=== PATIENT | male | born 1985 | race Caucasian/White ===

== ENCOUNTER 2018-01-19 10:08 | Emergency (ER) | payer OTHER ==
[~2018-01-19] VITALS: Ht 175.3 cm; Wt 56.7 kg
[~2018-01-19 10:08] MED LIST: DOXYCYCLINE 10100 MG PO
[2018-01-19] MEDS ORDERED: BIKTARVY 50-201 EACH PO (10:33)
[2018-01-19] MEDS ORDERED: TOPROL XL25 MG PO (10:33)
[2018-01-19] MEDS ORDERED: VENTOLIN HFA 1818 GM INH (10:33)
[2018-01-19 10:44] LABS: ABSOLUTE NEUTROPHILS 7.6 thou/uL (1.4-8.2); BASOPHILS 0.6 % (0.0-2.0); EOSINOPHILS 1.5 % (0.0-3.0); HEMATOCRIT 42.4 % (42.0-52.0); HEMOGLOBIN 15.5 gm/dL (14.0-18.0); LYMPHOCYTES 12.8 % (24.0-44.0); MCH 32.3 pg (26.0-34.0); MCHC 36.5 g/dL (28.0-37.0); MCV 88.7 fL (80.0-100.0); MONOCYTES 5.8 % (1.0-8.0); PLATELET COUNT 162 thou/uL (150-400); POLYS 79.3 % (36.0-66.0); RBC 4.78 mil/uL (4.50-6.00); RDW 12.6 % (10.5-14.5); WBC 9.6 thou/uL (4.0-11.0)
[2018-01-19 10:51] LABS: CALCIUM 9.4 mg/dL (8.5-10.1); CREATININE 1.2 mg/dL (0.7-1.3); POTASSIUM 3.3 mmol/L (3.5-5.1)
[2018-01-19 10:58] LABS: ALBUMIN 3.3 g/dL (3.4-5.0); TOTAL BILIRUBIN 1.1 mg/dL (<0.1-1.0); TOTAL PROTEIN 7.9 g/dL (6.4-8.2)
[2018-01-19] MEDS ORDERED: ZOFRAN ODT4 MG PO (11:19)
[2018-01-19] MEDS ORDERED: K-TAB10 MEQ PO (11:21)
[2018-01-19 12:15] VITALS: BP 106/62
== END 2018-01-19 12:19 | disposition home or self-care (01) ==
LOC: ER 10:08
PROVIDERS: Physician Assistant
DX: R11.2 Nausea with vomiting, unspecified (principal); F41.9 Anxiety disorder, unspecified; E87.6 Hypokalemia

== ENCOUNTER 2019-06-16 04:09 | Emergency (ER) | payer OTHER ==
[~2019-06-16] VITALS: Ht 175.3 cm; Wt 63.5 kg
[~2019-06-16 04:09] MED LIST changes: +BIKTARVY 50-201 EACH PO; +K-TAB10 MEQ PO; +TOPROL XL25 MG PO; +VENTOLIN HFA 1818 GM INH; +ZOFRAN ODT4 MG PO
[2019-06-16 04:42] LABS: ABSOLUTE NEUTROPHILS 7.6 thou/uL (1.4-8.2); BASOPHILS 0.6 % (0.0-2.0); HEMATOCRIT 45.9 % (42.0-52.0); HEMOGLOBIN 15.6 gm/dL (14.0-18.0); LYMPHOCYTES 28.7 % (24.0-44.0); MCH 31.4 pg (26.0-34.0); MCV 92.5 fL (80.0-100.0); MONOCYTES 8.3 % (1.0-8.0); PLATELET COUNT 174 thou/uL (150-400); POLYS 61.4 % (36.0-66.0); RBC 4.96 mil/uL (4.50-6.00); RDW 12.8 % (10.5-14.5); WBC 12.3 thou/uL (4.0-11.0)
[2019-06-16 05:19] LABS: CALCIUM 8.9 mg/dL (8.5-10.1); POTASSIUM 4.1 mmol/L (3.5-5.1)
[2019-06-16 05:25] LABS: ALBUMIN 3.6 g/dL (3.4-5.0); TOTAL BILIRUBIN 0.6 mg/dL (<0.1-1.0); TOTAL PROTEIN 7.2 g/dL (6.4-8.2)
[2019-06-16 05:45] LABS: URINE BILIRUBIN NEGATIVE (Negative); URINE BLOOD NEGATIVE (Negative); URINE CLARITY CLEAR; URINE COLOR YELLOW; URINE GLUCOSE-RANDOM* NEGATIVE (Negative); URINE KETONES NEGATIVE (Negative); URINE LEUKOCYTES-REFLEX NEGATIVE (Negative); URINE NITRITE-REFLEX NEGATIVE (Negative); URINE PROTEIN (DIPSTICK) NEGATIVE (Negative); URINE SPECIFIC GRAVITY 1.015 (1.005-1.035)
[2019-06-16 06:09] VITALS: BP 122/78
== END 2019-06-16 06:07 | disposition home or self-care (01) ==
LOC: ER 04:09
PROVIDERS: Emergency Medicine
DX: R10.31 Right lower quadrant pain (principal); F41.9 Anxiety disorder, unspecified

== ENCOUNTER 2019-10-25 16:57 | Emergency (ER) | payer OTHER ==
[~2019-10-25] VITALS: Ht 170.2 cm; Wt 71.2 kg
[2019-10-25] MEDS ORDERED: DOVATO 50-3001 EACH PO (17:31)
[2019-10-25] MEDS ORDERED: SPIRIVA18 MCG INH (17:31)
[2019-10-25 17:44] LABS: ABSOLUTE NEUTROPHILS 4.1 thou/uL (1.4-8.2); BASOPHILS 0.3 % (0.0-2.0); EOSINOPHILS 1.3 % (0.0-3.0); HEMATOCRIT 45.8 % (42.0-52.0); HEMOGLOBIN 16.1 gm/dL (14.0-18.0); LYMPHOCYTES 41.4 % (24.0-44.0); MCH 32.3 pg (26.0-34.0); MCHC 35.1 g/dL (28.0-37.0); MCV 91.9 fL (80.0-100.0); MONOCYTES 9.2 % (1.0-8.0); PLATELET COUNT 186 thou/uL (150-400); POLYS 47.8 % (36.0-66.0); RBC 4.98 mil/uL (4.50-6.00); RDW 13.4 % (10.5-14.5); WBC 8.7 thou/uL (4.0-11.0)
[2019-10-25 17:51] LABS: ANION GAP 9 mmol/L (7-16); BUN 13 mg/dL (7-18); CALCIUM 8.8 mg/dL (8.5-10.1); CHLORIDE 101 mmol/L (98-107); CO2 26 mmol/L (21-32); CREATININE 1.2 mg/dL (0.7-1.3); GLUCOSE 110 mg/dL (74-106); POTASSIUM 3.4 mmol/L (3.5-5.1); SODIUM 136 mmol/L (136-145)
[2019-10-25 18:01] LABS: ALBUMIN 3.7 g/dL (3.4-5.0); DIRECT BILIRUBIN < 0.1 mg/dL (<0.1-0.2); SGOT 39 U/L (15-37); SGPT 33 U/L (30-65); TOTAL BILIRUBIN 0.5 mg/dL (0.2-1.0); TOTAL PROTEIN 7.5 g/dL (6.4-8.2); TROPONIN-I <0.06 ng/mL (<0.06)
[2019-10-25] MEDS ORDERED: MOBIC15 MG PO (18:22)
[2019-10-25 18:53] VITALS: BP 121/81
--- NOTE | 2019-10-28 07:37 | EKG ---
[facility] [place] [address] ELECTROCARDIOGRAM REPORT Name: ELENA HAGEN Room #: DEP [facility]#: [id number] Admission: 10/25/19 Attend Phys: Discharge: 10/25/19 Date of : 87 Report #: [id number] THIS REPORT FOR: cc: FAM - Family physician unknown FAM - Family physician unknown Gilbert Fletcher MD [facility] THIS REPORT FOR: //name// [facility] ED Test Date: 2019-10-25 Test Time: 17:04:02 Pat Name: ELENA HAGEN Department: Room: Gender: Lighting Specialist: SAVANNA : 1985 Requested By: Almaz Rucker Order Number: [id number] MD: Gilbert Fletcher Measurements Intervals [place] Rate: 69 P: 77 FL: 163 QRS: 84 QRSD: 96 T: 65 QT: 368 QTc: 395 Interpretive Statements Sinus rhythm No significant abnormality No previous ECG available for comparison Electronically Signed On 10-28-2019 7:37:22 CDT by Gilbert Fletcher [email or web address] <ELECTRONICALLY SIGNED> By: Gilbert Fletcher MD, [facility] 10/28/19 0737 1704 170 Gilbert Fletcher MD, FACC /EPI
== END 2019-10-25 18:53 | disposition home or self-care (01) ==
LOC: ER 16:57
PROVIDERS: Emergency Medicine
DX: R07.89 Other chest pain (principal); Z79.899 Other long term (current) drug therapy

== ENCOUNTER 2021-03-11 04:35 | Emergency (ER) | payer OTHER ==
[~2021-03-11] VITALS: Ht 172.7 cm; Wt 59.0 kg
[~2021-03-11 04:35] MED LIST changes: +DOVATO 50-3001 EACH PO; +MOBIC15 MG PO; +SPIRIVA18 MCG INH
[2021-03-11] MEDS ORDERED: NORCO5 PO (05:01)
[2021-03-11 06:53] VITALS: BP 132/69
== END 2021-03-11 06:30 | disposition home or self-care (01) ==
LOC: ER 04:35
DX: K08.89 Other specified disorders of teeth and supporting structures (principal); F41.9 Anxiety disorder, unspecified; Z21 Asymptomatic human immunodeficiency virus [HIV] infection status; J45.909 Unspecified asthma, uncomplicated; Z79.51 Long term (current) use of inhaled steroids; Z79.899 Other long term (current) drug therapy